=== PATIENT | female | born 1955 | race Caucasian/White ===

== ENCOUNTER 2018-08-22 09:06 | Inpatient (IN) | payer MEDICARE, MEDICAID ==
--- NOTE | 2018-08-22 09:23 | ED ---
Psychiatric Complaint - HPI Summary HPI Summary: The patient is a 63 y/o F presenting to [facility] with a chief complaint of visual hallucinations this morning. She states that she was at home when she saw people in her house who were making a bomb. She left her house and was rolling on the ground outside until she reached her neighbor's house, who brought her here. She states that she doesn't think she was having hallucinations, but she does have hx of visual and auditory hallucinations. She additionally c/o left shoulder pain that is chronic but worse more today than usual due to the rolling around, and there is a warm, erythematous region on the posterior right calf extending down to the ankle. She reports that she had a similar episode with the RLE about four weeks ago with extensive swelling. The pain is currently rated 7/10 in severity in her shoulder and leg. She denies SI. Hx of DM, HTN, HLD, BTK left amputation, cellulitis, IBS, encephalopathy, pancreatitis. Light every day smoker, no EtOH, no substance use. - History Of Current Complaint Time Seen by Provider: 08/22/18 09:07 Hx Obtained From: Patient ?: No Onset/Duration: Sudden Onset, Lasting Hours, Still Present Timing: Hours Severity Initially: Moderate Severity Currently: Moderate Character: Anxious Aggravating Factor(s): Other - visual hallucinations Alleviating Factor(s): Nothing Associated Signs And Symptoms: Positive: Hallucinating - visual Related History: Positive For: Prior Psychiatric Issues - previous visual and auditory hallucinations Has Suicidal: Denies: Thoughts - Allergies/Home Medications Allergies/Adverse Reactions: Allergies Allergy/AdvReac Type Severity Reaction Status Date / Time Sulfa (Sulfonamide Allergy Unknown Verified 08/22/18 09:09 Antibiotics) Reaction Details Home Medications: Home Medications Atorvastatin* [Lipitor*] 40 mg PO DAILY 08/22/18 [History Confirmed 08/22/18] Cyclobenzaprine TAB* [Flexeril 10 MG TAB*] 10 mg PO TID 08/22/18 [History Confirmed 08/22/18] Gabapentin 1 cap PO TID 08/22/18 [History Confirmed 08/22/18] Levothyroxine Sodium 1 tab PO DAILY 08/22/18 [History Confirmed 08/22/18] Morphine Sulfate 1 tab PO TID 08/22/18 [History Confirmed 08/22/18] Potassium Chlor TAB* [Potassium Chlor TAB 20 MEQ*] 1 tab PO DAILY 08/22/18 [ History Confirmed 08/22/18] Venlafaxine EXT RELEASE CAP* [Effexor Xr CAP*] 3 cap PO DAILY 08/22/18 [History Confirmed 08/22/18] amLODIPine TAB* [Norvasc 5 mg TAB*] 5 mg PO DAILY 08/22/18 [History Confirmed ] traZODone TAB* [Desyrel TAB*] 2 tab PO BEDTIME 08/22/18 [History Confirmed 08/22] PMH/Surg Hx/FS Hx/Imm Hx Endocrine/Hematology History: Reports: Hx Diabetes, Hx Thyroid Disease Cardiovascular History: Reports: Hx Coronary Artery Disease, Hx Hypercholesterolemia, Hx Hypertension, Hx Peripheral Vascular Disease Musculoskeletal History: Reports: Other Musculoskeletal History - left BTK amputation Psychiatric History: Reports: Other Psychiatric Issues/Disorders - visual and auditory hallucinations - Surgical History Surgery Procedure, Year, and Place: BTK amputation, left, 2014 Infectious Disease History: No - Family History Known Family History: Positive: Diabetes - Social History Alcohol Use: None Hx Substance Use: No Substance Use Type: Reports: None Hx Tobacco Use: Yes Smoking Status (MU): Light Every Day Tobacco Smoker Do You Chew or Dip Tobacco: No Have You Chewed or Dipped Tobacco in the LAST YEAR: No Have You Smoked in the Last Year: No Review of Systems Positive: Other - left shoulder pain Positive: Other - erythema and warmness on the right posterior calf extending to ankle Psychological: Other - POSITIVE: visual hallucinations; NEGATIVE: SI All Other Systems Reviewed And Are Negative: Yes Physical Exam - Summary Physical Exam Summary: VITAL SIGNS: Reviewed. GENERAL: Patient is a well-developed and nourished female who is lying comfortable in the stretcher. Patient is not in any acute respiratory distress. HEAD AND FACE: No signs of trauma. No ecchymosis, hematomas or skull depressions. No sinus tenderness. EYES: PERRLA, EOMI x 2, No injected conjunctiva, no nystagmus. EARS: Hearing grossly intact. Ear canals and tympanic membranes are within normal limits. MOUTH: Oropharynx within normal limits. NECK: Supple, trachea is midline, no adenopathy, no JVD, no carotid bruit, no c- spine tenderness, neck with full ROM. CHEST: Symmetric, no tenderness at palpation LUNGS: Clear to auscultation bilaterally. No wheezing or crackles. CVS: Regular rate and rhythm, S1 and S2 present, no murmurs or gallops appreciated. ABDOMEN: Soft, non-tender. No signs of distention. No rebound no guarding, and no masses palpated. Bowel sounds are normal. EXTREMITIES: Below the knee amputation on the left, FROM in all major joints, no edema, no cyanosis or clubbing. NEURO: Alert and oriented x 3. No acute neurological deficits. Speech is normal and follows commands. SKIN: Erythema with some swelling and tenderness from below the knee to foot on the right. Skins is otherwise dry and warm. PSYCH: Having visual hallucinations. Denies any suicidal thoughts or plan. No homicidal thoughts or plan. No signs of psychosis or pressure speech. No tangential speech. Triage Information Reviewed: Yes Vital Signs Reviewed: Yes Diagnostics - Laboratory Result Diagrams: 08/23/18 06:00 08/22/18 09:39 Lab Statement: Any lab studies that have been ordered have been reviewed, and results considered in the medical decision making process. - Radiology CXR Radiology Interpretation Completed By: Radiologist Summary of Radiographic Findings: No evidence for active cardiopulmonary disease. ED physician has reviewed this radiology report. - Ultrasound BLE US Ultrasound Interpretation Completed By: Radiologist Summary of Ultrasound Findings: 1. Slightly limited exam, no evidence for deep venous thrombosis. 2. Winters's cyst. ED physician has reviewed this radiology report. Re-Evaluation - Re-Evaluation First Eval Re-Evaluation Time: 11:30 Comment: I disucssed admission with the patient. Course/Dx - Course Assessment/Plan: The patient is a 63 y/o F presenting to [facility] with a chief complaint of visual hallucinations this morning. She states that she was at home when she saw people in her house who were making a bomb. She left her house and was rolling on the ground outside until she reached her neighbor's house, who brought her here. She states that she doesn't think she was having hallucinations, but she does have hx of visual and auditory hallucinations. She additionally c/o left shoulder pain that is chronic but worse more today than usual due to the rolling around, and there is a warm, erythematous region on the posterior right calf extending down to the ankle. She reports that she had a similar episode with the RLE about four weeks ago with extensive swelling. The pain is currently rated 7/10 in severity in her shoulder and leg. She denies SI. Hx of DM, HTN, HLD, BTK left amputation, cellulitis, IBS, encephalopathy, pancreatitis. Light every day smoker, no EtOH, no substance use. 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 In the ED course. Place the patient in a gambling monitor, IV access was obtained. Eyes tended to IV fluids and Rocephin for the right lower extremity cellulitis. Chest x-ray impression: No evidence for active cardiopulmonary disease. Right lower extremity ultrasound impression: Slightly limited exam. No evidence for DVT. Positive for Bakers cyst. I discussed my physical exam, findings and test results with Dr. Newby from the hospitalist services, and she agrees to admit patient to his services. Patient is hemodynamically stable alert and oriented x 3. - Differential Dx/Clinical Impression Provider Diagnosis: Cellulitis, Visual hallucination - Physician Notifications Discussed Care Of Patient With: Silke Newby - hospitalist Time Discussed With Above Provider: 11:15 Instructed by Provider To: Other - I discussed the patient's case wtih Dr. Newby , and she accepts the patient for admission. Discharge - Sign-Out/Discharge Documenting (check all that apply): Patient Departure - Patient is accepted for admission by Dr. Newby. Patient Received Moderate/Deep Sedation with Procedure: No - Discharge Plan Condition: Stable Disposition: ADMITTED TO [facility] - Billing Disposition and Condition Condition: STABLE Disposition: Admitted to [facility] - Attestation Statements Document Initiated by Jean-Claude: Yes Documenting Scribe: Lorna Thompson Provider For Whom Jean-Claude is Documenting (Include Credential): Dr. Stephen Simons MD Scribe Attestation: Lorna Arvizu scribed for Dr. Stephen Simons MD on 08/23/18 at 0705. Scribe Documentation Reviewed: Yes Provider Attestation: The documentation as recorded by the Lorna smith accurately reflects the service I personally performed and the decisions made by me, Dr. Stephen Simons MD Status of Scribe Document: Viewed
[2018-08-22] MEDS ORDERED: cefTRIAXone(*) 1 GM in NS 0.9% 50 ML* 50 ML IVPB ONE (09:25)
[2018-08-22 10:01] LABS: ABS Basophils 0.1 10^3/ul (0-0.2); ABS Lymphocytes 0.6 10^3/ul (1.0-4.8); ABS Monocytes 0.3 10^3/ul (0-0.8); ABS Neutrophils 6.8 10^3/ul (1.5-7.7); Eosinophil % 0.5 %; Hematocrit 35 % (35-47); Hemoglobin 11.5 g/dL (12.0-16.0); Lymphocyte % 7.6 %; Mean Corpuscular HGB Conc 33 g/dL (31-36); Mean Corpuscular Hemoglobin 28 pg (27-31); Mean Corpuscular Volume 84 fL (80-97); Mean Platelet Volume 7.7 fL (7.4-10.4); Platelet Count 257 10^3/uL (150-450); Red Cell Distribution Width 14 % (10-15); White Blood Count 7.8 10^3/uL (3.5-10.8)
[2018-08-22 10:11] LABS: Activated Partial Thrombo Time 27.4 seconds (26.0-38.0); INR 1.09 (0.82-1.09)
[2018-08-22 10:19] LABS: Albumin 4.1 g/dL (3.2-5.2); Albumin/Globulin Ratio 1.2 (1-3); BUN/Creatinine Ratio 19.5 (8-20); C Reactive Protein 31.46 mg/L (<8.01); EGFR African American 79.3 (>60); EGFR Non-African American 65.6 (>60); Globulin 3.4 g/dL (2-4); Potassium 3.9 mmol/L (3.5-5.0); Total Bilirubin 0.5 mg/dL (0.2-1.0); Total Protein 7.5 g/dL (6.4-8.9)
[2018-08-22 10:40] LABS: Fibrinogen > 550.4 mg/dL (110.8-404.3)
--- NOTE | 2018-08-22 12:34 | PN ---
Progress Note - Progress Note Date of Service: 08/22/18 Note: Patient being placed on observation for cellulitis, mild. Patient has provided contact info as follows: Dean Saravia, friend [phone] (work) [phone] (home) Cj Monroy, son in [place], [place] [phone]
[2018-08-22] MEDS ORDERED: Dextrose 50% Syringe 50 ML* 25 GM/50 ML SYRINGE IV PUSH PRN (12:35)
[2018-08-22] MEDS ORDERED: ceFAZolin 1 GM ADVAN(*) 1 GM in NS 0.9% 50 ML* 50 ML IVPB SCH (13:00)
[2018-08-22 13:24] LABS: Erythrocyte Sed Rate 65 mm/Hr (0-29)
[2018-08-22] MEDS ORDERED: Morphine TAB (NF) 15 MG TAB PO SCH (14:00)
[2018-08-22] MEDS ORDERED: Gabapentin CAP(*) 300 MG PO SCH (14:00)
--- NOTE | 2018-08-22 14:27 | HP ---
CC: Dr. Martínez Peters * [facility] MEDICINE HISTORY AND PHYSICAL: DATE OF ADMISSION: 08/22/18 PRIMARY CARE PHYSICIAN: Dr. Martínez Peters. ATTENDING PHYSICIAN: Dr. Silke Newby * (dictation provided by Darcy Hermosillo NP ). CHIEF COMPLAINT: Hallucinations and question skin infection. HISTORY OF PRESENT ILLNESS: Ms. Jovel is a 63-year-old female with a past medical history of hypertension, diabetes, left below knee amputation, hypothyroidism, and question of intermittent right lower extremity cellulitis, who presents to the hospital today with concern for hallucinations with concern of warmth and redness to the right lower extremity. Per the report from EMS, they were called to the patient's home because the patient reported that there was someone in her home making a bomb. Per the report, the patient had crawled over to a neighbor's house to report this incident. The patient states that she has a history of hallucinations, but is not able elaborate further. When I asked her why she is here in the hospital today, she states that because she has redness and pain to her right lower extremity. However, this was not what was reported to EMS nor why she was brought here originally. The patient states that she first noted the redness and swelling to her right lower extremity 2 days ago. She denies having a fever. She states otherwise she was feeling well. She does note that she has not been taking her Bumex at home because it is too problematic to get up in the middle of the night to go to the bathroom. In terms of the hallucination, Ms. Jovel believes that she got confused after binge watching the show Designated Survivor on her phone through [employer]. I spoke with Ms. Jovel's friend, Dean Cid. Per his report, Ms. Jovel lives alone. He is a friend of her and lives several towns over. He notes that there has been some concern for her caring for herself at home and that the plan had been for her to move to live with her son, Cj, who lives in [place], [place]. Towards that end, the patient has sold her home to a friend; however, the patient was involved in a DWI, which Mr. Cid states is related to some excessive use of her morphine and therefore had to participate in a course through the [employer]. The patient apparently cannot leave the area until she completes the requirements for this offense. This is holding up her move to [place], [place]. Mr. Cid states that Ms. Jovel seems to be okay to be alone at home, but he has had concerns about her given her history and was certainly endorsing her move to live near her son. I have left a message for her son, but I have not heard back from him yet. In the emergency room, Ms. Jovel had labs showing a normal white blood cell count. She had a CRP at 31.46. On examination, she does have a warm and red right lower extremity. Her blood pressure is stable. She is afebrile. PAST MEDICAL HISTORY: 1. Question of tricuspid valve disorder, unknown type. 2. Hypertension. 3. Hyperlipidemia. 4. Hypothyroidism. 5. Non-insulin dependent type 2 diabetes. 6. Iron deficiency anemia. 7. Irritable bowel syndrome. 8. Overactive bladder. 9. Hepatitis C. 10. Left BKA. MEDICATIONS: The patient was unable to clearly confirm her medication list. Per the report from the primary care office, she is on the following medication regimen: 1. Amlodipine 5 mg. 2. Aspirin 81 mg. 3. Atorvastatin 40 mg. 4. Bumex 0.5 mg. 5. BuSpar 10 mg. 6. Ergocalciferol 2000 units. 7. Gabapentin 300 mg. 8. Levothyroxine 125 mcg. 9. Magnesium oxide 400 mg. 10. Metformin 500 mg. 11. Oxycodone 5 mg. 12. Polyethylene glycol powder. 13. Venlafaxine 75 mg. Unfortunately, this information from the primary care's office does not offer the directions for these medication. According to [facility], the patient is no longer on oxycodone, was actually on morphine IR 15 mg p.o. t.i.d. The patient states that she takes the Effexor 75 mg 2 tabs in the morning and 1 tab at night. She states she has not been taking the Bumex as noted above. Otherwise , the exact medications she is taking is somewhat unclear. FAMILY HISTORY: Reviewed and noncontributory. SOCIAL HISTORY: The patient is a current smoker. She denies alcohol or drug use. She lives alone. She states that her son Cj or her friend Dean would be the healthcare proxy. The son, Richmond' phone number is [phone] and Dean Cid, her friend, his phone number is [phone]. REVIEW OF SYSTEMS: A 14-point review of systems was completed with Ms. Jovel and all those not mentioned above were negative. PHYSICAL EXAMINATION GENERAL: Ms. Jovel is sitting in the bed. She is in no acute distress. She is alert and she is oriented x3. She does have some word finding difficulties at times, but is otherwise oriented x3. She moves all extremities equal. There is no facial asymmetry or focal weakness. Extraocular movements are intact. VITAL SIGNS: Temperature 98.9, pulse rate 80, respiratory rate 15, O2 saturation 99% on room air, blood pressure 139/80. LUNGS: Clear to auscultation bilaterally with no accessory muscle use and good aeration. HEART: S1, S2. No murmur, rub, or gallop and regular. ABDOMEN: Soft and nontender. Bowel sounds are positive x4. EXTREMITIES: No cyanosis. No edema. SKIN: The patient has mild erythema and warmth noted to the posterior aspect of her right lower extremity rising from the level of the ankle up to about care home towards the knee. This does wrap around small amount to the anterior portion of the ankle and has been outlined by the providers in the ED today and seems to have already improved since arrival there. DIAGNOSTIC STUDIES/LAB DATA: Sodium 140, potassium 3.9, chloride 103, serum bicarbonate 27, BUN 17, creatinine 0.87, glucose 149, lactic acid 1.0, troponin 0.00. CRP 31.46. WBC 7.8, hemoglobin 11.5, hematocrit 35. INR 1.09. Fibrinogen greater than 50.4. Chest x-ray shows no acute intrathoracic process. Venous Doppler is a incomplete study, but showed no evidence of DVT, but showed evidence of Winters cyst. ASSESSMENT AND PLAN: Ms. Jovel is a 63-year-old female with past medical history of noninsulin dependent diabetes, hypertension, hyperlipidemia, iron deficiency anemia, hepatitis C, and left below knee amputation, who presents to the hospital with concern for hallucinations, found to have right lower extremity cellulitis. Our plans are for observation in the hospital for the followin. Right lower extremity cellulitis: I think this may be an additional cause of her altered mental status; therefore, she deserves observation in the hospital overnight. Plan to treat with cefazolin 1 g q.8 hours. We will check labs in the a.m. She will be instructed to keep her lower extremity elevated at all times while seated. The area of redness has been demarcated and we will continue to observe that. She currently shows no evidence of sepsis. Blood cultures were sent. Lactic acid is normal. 2. Hallucinations: Per the patient's report and from the corroborative report from Mr. Cid, the patient's friend, the patient seems to have had a history of some intermittent hallucinations. I note that she is on morphine and this was confirmed via [facility]. Plan to reduce the dose from 15 t.i.d. to 10 t.i.d. Question whether or not she is appropriate candidate to continue at the time of discharge. She is also on gabapentin, which I will continue at a lower dose. She states she does not take Flexeril. I do question whether or not her infection may be contributing to her altered mental status as noted above. I asked social workers to follow up and see the patient as well to help determine safety for discharge. 3. Type 2 diabetes. Plan to monitor blood glucoses q.a.c. with lispro sliding scale. 4. Hypertension: The patient's blood pressure is now 160s to 150s. Plan to continue amlodipine. I am not continuing Bumex at this time. The patient has no lower extremity edema and an active infection. This can be resumed as needed. 5. Chronic pain. Again, plan to make adjustments to her morphine regimen as per above given her history of altered mental status and recent DWI. 6. Hypothyroidism. Continue levothyroxine. 7. Depression. Continue Effexor. 8. Code status is full code. TIME SPENT: Approximately 60 minutes was spent on the admission of this patient , more than half the time spent with the patient at the bedside reviewing the events leading up to this hospitalization, performing the physical examination, speaking with the patient's friends and family and reviewing my plan of care. DARCY HERMOSILLO NP [id number]/CPS #: [id number] [facility] CENTERPollo
[2018-08-22] MEDS: ceFAZolin 1 GM ADVAN(*) 1 GM in NS 0.9% 50 ML* 50 ML IVPB SCH ×2 (15:47→22:19)
[2018-08-22] MEDS: Heparin VIAL(*) 5000 UNITS/ML VIAL (FIVE THOUSAND) SUBCUT SCH ×2 (16:06→22:23)
[2018-08-22] MEDS: Gabapentin CAP(*) 300 MG PO SCH ×2 (16:06→22:12)
[2018-08-22] MEDS: Morphine ORAL.SOLN 10 mg* 2 MG/ML UDC 5 ml PO SCH ×2 (16:07→22:09)
[2018-08-22] MEDS: Insulin LISPRO* 1 UNITS UNIT SUBCUT SCH (17:52)
[2018-08-22] MEDS: traZODone TAB* 100 MG PO SCH (22:13)
[2018-08-22] MEDS: Venlafaxine EXT RELEASE CAP* 75 MG PO SCH (22:18)
[2018-08-23 03:32] LABS: Urine Appearance Clear; Urine Bilirubin Negative (Negative); Urine Blood Negative (Negative); Urine Color Yellow; Urine Glucose Negative (Negative); Urine Ketones Negative (Negative); Urine Nitrite Negative (Negative); Urine Protein Negative (Negative); Urine Specific Gravity 1.008 (1.010-1.030); Urine Urobilinogen Negative (Negative)
[2018-08-23] MEDS: ceFAZolin 1 GM ADVAN(*) 1 GM in NS 0.9% 50 ML* 50 ML IVPB SCH ×3 (06:25→21:14)
[2018-08-23] MEDS: Heparin VIAL(*) 5000 UNITS/ML VIAL (FIVE THOUSAND) SUBCUT SCH ×3 (06:27→20:53)
[2018-08-23 07:04] LABS: ABS Eosinophils 0.3 10^3/ul (0-0.6); ABS Lymphocytes 1.8 10^3/ul (1.0-4.8); ABS Monocytes 0.3 10^3/ul (0-0.8); Eosinophil % 6.4 %; Hematocrit 36 % (35-47); Hemoglobin 12.2 g/dL (12.0-16.0); Lymphocyte % 40.1 %; Mean Corpuscular HGB Conc 34 g/dL (31-36); Mean Corpuscular Hemoglobin 29 pg (27-31); Mean Corpuscular Volume 85 fL (80-97); Mean Platelet Volume 8.5 fL (7.4-10.4); Nucleated Red Blood Cells % 0.2; Platelet Count 172 10^3/uL (150-450); Red Blood Count 4.26 10^6 /uL (3.70-4.87); Red Cell Distribution Width 14 % (10-15); White Blood Count 4.4 10^3/uL (3.5-10.8)
[2018-08-23] MEDS: Insulin LISPRO* 1 UNITS UNIT SUBCUT SCH ×3 (08:32→17:03)
[2018-08-23] MEDS: Morphine ORAL.SOLN 10 mg* 2 MG/ML UDC 5 ml PO SCH ×3 (09:20→20:52)
[2018-08-23] MEDS: Venlafaxine EXT RELEASE CAP* 75 MG PO SCH ×2 (09:21→20:51)
[2018-08-23] MEDS: Gabapentin CAP(*) 300 MG PO SCH ×3 (09:21→20:53)
[2018-08-23] MEDS: Atorvastatin* 40 MG TAB PO SCH (09:21)
[2018-08-23] MEDS: Levothyroxine TAB* 75 MCG TAB PO SCH (09:21)
[2018-08-23] MEDS: amLODIPine TAB* 5 MG PO SCH (09:22)
--- NOTE | 2018-08-23 14:34 | PN ---
Subjective Date of Service: 08/23/18 Interval History: Ms. Jovel is feeling much better today. She offers no complaints, but is anxious as she is unsure what her living situation will be in the near future. Denies CP, SOB, N/V. She does remember the events from yesterday. She describes hallucinating about people being in her house and setting off a bomb. She reports it felt real at the time, but she now knows she was hallucinating. She reports this has happened to her in the past multiple times. No concerns from nursing. Family History: Unchanged from Admission Social History: Unchanged from Admission Past Medical History: Unchanged from Admission Objective Active Medications: Amlodipine Besylate (Norvasc Tab*) 5 mg PO DAILY RACHAEL Atorvastatin Calcium (Lipitor*) 40 mg PO DAILY RACHAEL Dextrose (D50w Syringe 50 Ml*) 12.5 gm IV PUSH .FOR FS < 60 - SS PRN FS < 60 Gabapentin (Neurontin Cap(*)) 300 mg PO TID RACHAEL Heparin Sodium (Porcine) (Heparin Vial(*)) 5,000 units SUBCUT Q8HR RACHAEL Cefazolin Sodium 1 gm/ Sodium (Chloride) 50 mls @ 200 mls/hr IVPB Q8HR RACHAEL Insulin Human Lispro (Humalog*) 0 units SUBCUT AC RACHAEL; Protocol Levothyroxine Sodium (Synthroid Tab*) 75 mcg PO DAILY RACHAEL Morphine Sulfate (Morphine Oral.Soln 10 Mg*) 10 mg PO TID RACHAEL Trazodone HCl (Desyrel Tab*) 200 mg PO BEDTIME RACHAEL Venlafaxine HCl (Effexor Xr Cap*) 150 mg PO DAILY RACHAEL Venlafaxine HCl (Effexor Xr Cap*) 75 mg PO 2100 RACHAEL Vital Signs - 8 hr 08/23/18 08/23/18 08/23/18 08:00 09:20 09:21 Respiratory 18 18 18 Rate O2 Sat by Pulse 99 Oximetry 08/23/18 13:21 Respiratory 18 Rate O2 Sat by Pulse Oximetry Oxygen Devices in Use Now: None Appearance: Middle-aged female laying in bed in NAD Eyes: No Scleral Icterus Ears/Nose/Mouth/Throat: Mucous Membranes Moist Neck: NL Appearance and Movements; NL JVP, Trachea Midline Respiratory: Symmetrical Chest Expansion and Respiratory Effort, Clear to Auscultation Cardiovascular: NL Sounds; No Murmurs; No JVD, RRR Abdominal: NL Sounds; No Tenderness; No Distention Extremities: No Edema Skin: - - Erythema receding from demarcation Neurological: Alert and Oriented x 3 Lines/Tubes/Other Access: Clean, Dry and Intact Peripheral IV Nutrition: Taking PO's Result Diagrams: 08/23/18 06:00 08/22/18 09:39 Assess/Plan/Problems-Billing Assessment: Ms. Jovel is a 63 yo F with PMH of HTN, HLD, hypothyroidism, and DM2; who presented to the ED with c/o hallucinations and was found to have AMS and RLE cellulitis. - Patient Problems (1) Cellulitis of right leg Code(s): L03.115 - CELLULITIS OF RIGHT LOWER LIMB Comment: - Improving from demarcated line - Continue cefazolin (2) Hallucinations Code(s): R44.3 - HALLUCINATIONS, UNSPECIFIED Comment: - Unclear etiology - Appreciate Psych consult - Morphine and gabapentin doses decreased on admission as these may be contributing (3) Hypertension Code(s): I10 - ESSENTIAL (PRIMARY) HYPERTENSION Comment: - Slightly hypertensive, SBP 140s - Continue amlodipine (4) Diabetes type 2, controlled Code(s): E11.9 - TYPE 2 DIABETES MELLITUS WITHOUT COMPLICATIONS Comment: - A1c 6.7% - Continue Lispro SS (5) Chronic pain Code(s): G89.29 - OTHER CHRONIC PAIN Comment: - Continue morphine and gabapentin at decreased doses; unclear if she should actually be d/c'd on these medications d/t hallucinations (6) Hypothyroidism Code(s): E03.9 - HYPOTHYROIDISM, UNSPECIFIED Comment: - TSH pending - Continue levothyroxine (7) Hyperlipidemia Code(s): E78.5 - HYPERLIPIDEMIA, UNSPECIFIED Comment: - Continue atorvastatin (8) DVT prophylaxis Code(s): Z29.9 - ENCOUNTER FOR PROPHYLACTIC MEASURES, UNSPECIFIED Comment: - Heparin SQ (9) Full code status Code(s): Z78.9 - OTHER SPECIFIED HEALTH STATUS Comment: Status and Disposition: Observation. Discharge plan unclear. Will need to speak with her son prior to d/ c to arrange a safe plan. Attending: Gm Downey
[2018-08-23 16:14] LABS: TSH (Thyroid Stimulating Horm) 2.85 mcIU/mL (0.34-5.60)
[2018-08-23] MEDS: traZODone TAB* 100 MG PO SCH (20:51)
[2018-08-24] MEDS: ceFAZolin 1 GM ADVAN(*) 1 GM in NS 0.9% 50 ML* 50 ML IVPB SCH (05:50)
[2018-08-24] MEDS: Heparin VIAL(*) 5000 UNITS/ML VIAL (FIVE THOUSAND) SUBCUT SCH ×3 (05:51→20:05)
[2018-08-24] MEDS: Insulin LISPRO* 1 UNITS UNIT SUBCUT SCH ×3 (08:12→18:13)
[2018-08-24] MEDS: Gabapentin CAP(*) 300 MG PO SCH ×3 (09:09→20:06)
[2018-08-24] MEDS: Levothyroxine TAB* 75 MCG TAB PO SCH (09:09)
[2018-08-24] MEDS: Venlafaxine EXT RELEASE CAP* 75 MG PO SCH ×2 (09:09→20:06)
[2018-08-24] MEDS: Atorvastatin* 40 MG TAB PO SCH (09:09)
[2018-08-24] MEDS: amLODIPine TAB* 5 MG PO SCH (09:09)
[2018-08-24] MEDS: Morphine ORAL.SOLN 10 mg* 2 MG/ML UDC 5 ml PO SCH ×3 (09:10→20:06)
--- NOTE | 2018-08-24 13:03 | PN ---
Subjective Date of Service: 08/24/18 Interval History: Patient notes redness is resolving in RLE. She is concerned that she has not heard from her son. She has sold her house and needs to move in the next several months. Family History: Unchanged from Admission Social History: Unchanged from Admission Past Medical History: Unchanged from Admission Objective Active Medications: Amlodipine Besylate (Norvasc Tab*) 5 mg PO DAILY [facility] Last Admin: 08/24/18 09:09 Dose: 5 mg Atorvastatin Calcium (Lipitor*) 40 mg PO DAILY [facility] Last Admin: 08/24/18 09:09 Dose: 40 mg Dextrose (D50w Syringe 50 Ml*) 12.5 gm IV PUSH .FOR FS < 60 - SS PRN PRN Reason: FS < 60 Gabapentin (Neurontin Cap(*)) 300 mg PO TID [facility] Last Admin: 08/24/18 09:09 Dose: 300 mg Heparin Sodium (Porcine) (Heparin Vial(*)) 5,000 units SUBCUT Q8HR [facility] Last Admin: 08/24/18 05:51 Dose: 5,000 units Cefazolin Sodium 1 gm/ Sodium (Chloride) 50 mls @ 200 mls/hr IVPB Q8HR [facility] Last Admin: 08/24/18 05:50 Dose: 200 mls/hr Insulin Human Lispro (Humalog*) 0 units SUBCUT AC [facility]; Protocol Last Admin: 08/24/18 12:21 Dose: Not Given Levothyroxine Sodium (Synthroid Tab*) 75 mcg PO DAILY [facility] Last Admin: 08/24/18 09:09 Dose: 75 mcg Morphine Sulfate (Morphine Oral.Soln 10 Mg*) 10 mg PO TID [facility] Last Admin: 08/24/18 09:10 Dose: 10 mg Trazodone HCl (Desyrel Tab*) 200 mg PO BEDTIME [facility] Last Admin: 08/23/18 20:51 Dose: 200 mg Venlafaxine HCl (Effexor Xr Cap*) 150 mg PO DAILY [facility] Last Admin: 08/24/18 09:09 Dose: 150 mg Venlafaxine HCl (Effexor Xr Cap*) 75 mg PO 2100 [facility] Last Admin: 08/23/18 20:51 Dose: 75 mg Vital Signs - 8 hr 08/24/18 08/24/18 08/24/18 07:45 09:09 09:10 Temperature 36.5 C Pulse Rate 61 Respiratory 16 18 18 Rate Blood Pressure 111/61 (mmHg) O2 Sat by Pulse 98 Oximetry Oxygen Devices in Use Now: None Appearance: alert, no distress Eyes: No Scleral Icterus Ears/Nose/Mouth/Throat: NL Teeth, Lips, Gums Neck: NL Appearance and Movements; NL JVP, Trachea Midline Respiratory: Symmetrical Chest Expansion and Respiratory Effort, Clear to Auscultation Cardiovascular: NL Sounds; No Murmurs; No JVD, RRR Lymphatic: No Cervical Adenopathy Extremities: No Edema, - - LT BK amp Skin: - - RLE very mild erythema, tenderness, no edema Lines/Tubes/Other Access: Clean, Dry and Intact Peripheral IV Nutrition: Taking PO's Result Diagrams: 08/23/18 06:00 08/22/18 09:39 Additional Lab and Data: Laboratory Tests 08/23/18 08/23/18 08/24/18 12:10 16:52 07:13 POC Glucose (mg/dL) 165 H 95 114 H 08/24/18 11:55 POC Glucose (mg/dL) 140 H Microbiology and Other Data: Microbiology 08/22/18 09:45 Blood Venous Aerobic Blood Culture - Preliminary 08/22/18 09:45 Blood Venous Anaerobic Blood Culture - Preliminary No Growth Day 2 No Growth Day 2 08/22/18 09:39 Blood Venous Aerobic Blood Culture - Preliminary 08/22/18 09:39 Blood Venous Anaerobic Blood Culture - Preliminary No Growth Day 2 No Growth Day 2 Assess/Plan/Problems-Billing Assessment: Ms. Jovel is a 63 yo F with PMH of HTN, HLD, hypothyroidism, and DM2; who presented to the ED with c/o hallucinations and was found to have AMS and RLE cellulitis. - Patient Problems (1) Delirium due to another medical condition Current Visit: Yes Status: Acute Priority: High Code(s): F05 - DELIRIUM DUE TO KNOWN PHYSIOLOGICAL CONDITION SNOMED Code(s): 1501013 Comment: -Sensorium has cleared, appears due to infection (2) Cellulitis of right leg Current Visit: Yes Status: Acute Priority: High Code(s): L03.115 - CELLULITIS OF RIGHT LOWER LIMB SNOMED Code(s): 623893601 Comment: - Improving from demarcated line - Switch cefazolin to oral equivalent (3) Diabetes type 2, controlled Current Visit: Yes Status: Acute Priority: Medium Code(s): E11.9 - TYPE 2 DIABETES MELLITUS WITHOUT COMPLICATIONS SNOMED Code(s): 44716585 Comment: - A1c 6.7% - Continue Lispro SS (4) DVT prophylaxis Current Visit: Yes Status: Acute Priority: Low Code(s): Z29.9 - ENCOUNTER FOR PROPHYLACTIC MEASURES, UNSPECIFIED SNOMED Code(s): 087203070 Comment: - Heparin SQ Status and Disposition: Inpatient. Will need to speak with her son prior to d/c to arrange a safe plan.
[2018-08-24] MEDS: ceFUROXime TAB(*) 250 MG PO SCH (20:05)
[2018-08-24] MEDS: traZODone TAB* 100 MG PO SCH (20:06)
[2018-08-25] MEDS: Heparin VIAL(*) 5000 UNITS/ML VIAL (FIVE THOUSAND) SUBCUT SCH ×3 (05:14→20:13)
[2018-08-25] MEDS: Insulin LISPRO* 1 UNITS UNIT SUBCUT SCH ×3 (07:52→17:20)
--- NOTE | 2018-08-25 07:58 | PN ---
Progress Note - Progress Note Date of Service: 08/24/18 Note: Spoke with son Cj at length at [phone]. He agreed that long-term plan is for mother to come live with or near him in [place]. However, he wants her to be in good health before she moves there. He has a job , , kids. He states that she has had similar episodes of hallucination, disruptive behavior, and that he is unsure he can manage this. Patient has indeed sold her house, but can live there for several more months. He states that he wants her to just leave her extra belongings there, and not pack them all. His is willing to help the patient, as she is a nurse, but patient has not been forthcoming with information about what types of doctors she needs in [place]. Son is not sure that patient has attended legally-required DUI classes in [place]. He states she is very cagey about this information. He suggested that care management and discharge planners talk to his Rita Monroy RN at [phone] tomorrow.
[2018-08-25] MEDS: Levothyroxine TAB* 75 MCG TAB PO SCH (08:35)
[2018-08-25] MEDS: Atorvastatin* 40 MG TAB PO SCH (08:35)
[2018-08-25] MEDS: ceFUROXime TAB(*) 250 MG PO SCH ×2 (08:35→19:49)
[2018-08-25] MEDS: Venlafaxine EXT RELEASE CAP* 75 MG PO SCH ×2 (08:35→19:48)
[2018-08-25] MEDS: amLODIPine TAB* 5 MG PO SCH (08:35)
[2018-08-25] MEDS: Gabapentin CAP(*) 300 MG PO SCH ×3 (08:35→19:47)
[2018-08-25] MEDS: Morphine ORAL.SOLN 10 mg* 2 MG/ML UDC 5 ml PO SCH ×3 (08:37→19:49)
--- NOTE | 2018-08-25 10:29 | PN ---
Subjective Date of Service: 08/25/18 Interval History: Patient has no new complaints. She has tenderness RLE. She has not spoken with her son Cj since admission. When I spoke with son yesterday, he expressed concern re episodes of delusions. He feels patient is overusing opiates. Spoke with Dr. Saini, pain management. He states patient already cut down on opiates, and is always consistent with counts, UDS. He was concerned re other medications such as benadryl causing confusion. He also had records of 2 other [facility], where delusional behavior attributed to UTI once, dehydration once. Family History: Unchanged from Admission Social History: Unchanged from Admission Past Medical History: Unchanged from Admission Objective Active Medications: Amlodipine Besylate (Norvasc Tab*) 5 mg PO DAILY [facility] Last Admin: 08/25/18 08:35 Dose: 5 mg Atorvastatin Calcium (Lipitor*) 40 mg PO DAILY [facility] Last Admin: 08/25/18 08:35 Dose: 40 mg Cefuroxime Axetil (Ceftin Tab(*)) 500 mg PO BID [facility] Last Admin: 08/25/18 08:35 Dose: 500 mg Dextrose (D50w Syringe 50 Ml*) 12.5 gm IV PUSH .FOR FS < 60 - SS PRN PRN Reason: FS < 60 Gabapentin (Neurontin Cap(*)) 300 mg PO TID [facility] Last Admin: 08/25/18 08:35 Dose: 300 mg Heparin Sodium (Porcine) (Heparin Vial(*)) 5,000 units SUBCUT Q8HR [facility] Last Admin: 08/25/18 05:14 Dose: 5,000 units Insulin Human Lispro (Humalog*) 0 units SUBCUT AC [facility]; Protocol Last Admin: 08/25/18 07:52 Dose: Not Given Levothyroxine Sodium (Synthroid Tab*) 75 mcg PO DAILY [facility] Last Admin: 08/25/18 08:35 Dose: 75 mcg Morphine Sulfate (Morphine Oral.Soln 10 Mg*) 10 mg PO TID [facility] Last Admin: 08/25/18 08:37 Dose: 10 mg Trazodone HCl (Desyrel Tab*) 200 mg PO BEDTIME [facility] Last Admin: 08/24/18 20:06 Dose: 200 mg Venlafaxine HCl (Effexor Xr Cap*) 150 mg PO DAILY [facility] Last Admin: 08/25/18 08:35 Dose: 150 mg Venlafaxine HCl (Effexor Xr Cap*) 75 mg PO 2100 [facility] Last Admin: 08/24/18 20:06 Dose: 75 mg Vital Signs - 8 hr 08/25/18 08/25/18 08/25/18 02:54 07:37 08:35 Temperature 36.4 C 36.4 C Pulse Rate 58 67 Respiratory 18 12 12 Rate Blood Pressure 96/52 104/64 (mmHg) O2 Sat by Pulse 98 98 Oximetry Oxygen Devices in Use Now: None Appearance: alert, no distress Eyes: No Scleral Icterus Ears/Nose/Mouth/Throat: Clear Oropharnyx Neck: No Thyroid Enlargement, Masses Respiratory: Symmetrical Chest Expansion and Respiratory Effort, Clear to Auscultation Cardiovascular: NL Sounds; No Murmurs; No JVD, RRR Abdominal: NL Sounds; No Tenderness; No Distention Extremities: - - LLE amputee, RLE w/ no erythema, but tenderness present Neurological: Alert and Oriented x 3 Lines/Tubes/Other Access: Clean, Dry and Intact Peripheral IV Nutrition: Taking PO's Result Diagrams: 08/23/18 06:00 08/22/18 09:39 Microbiology and Other Data: Microbiology 08/22/18 09:45 Blood Venous Aerobic Blood Culture - Preliminary 08/22/18 09:45 Blood Venous Anaerobic Blood Culture - Preliminary No Growth Day 3 No Growth Day 3 08/22/18 09:39 Blood Venous Aerobic Blood Culture - Preliminary 08/22/18 09:39 Blood Venous Anaerobic Blood Culture - Preliminary No Growth Day 3 No Growth Day 3 Assess/Plan/Problems-Billing Assessment: Ms. Jovel is a 63 yo F with PMH of HTN, HLD, hypothyroidism, and DM2; who presented to the ED with c/o hallucinations and was found to have AMS and RLE cellulitis. - Patient Problems (1) Delirium due to another medical condition Current Visit: Yes Status: Acute Priority: High Code(s): F05 - DELIRIUM DUE TO KNOWN PHYSIOLOGICAL CONDITION SNOMED Code(s): 3045454 Comment: -Sensorium has cleared, appears due to infection -Will check comprehensive UDS, as screening UDS not completed in ER -Will check RPR/syphillis -Social work should be talking with family re long-term plan (2) Cellulitis of right leg Current Visit: Yes Status: Acute Priority: High Code(s): L03.115 - CELLULITIS OF RIGHT LOWER LIMB SNOMED Code(s): 670860752 Comment: - Improving today - Tolerating oral ceftin (3) Diabetes type 2, controlled Current Visit: Yes Status: Acute Priority: Medium Code(s): E11.9 - TYPE 2 DIABETES MELLITUS WITHOUT COMPLICATIONS SNOMED Code(s): 78152316 Comment: - A1c 6.7% - Continue Lispro SS (4) DVT prophylaxis Current Visit: Yes Status: Acute Priority: Low Code(s): Z29.9 - ENCOUNTER FOR PROPHYLACTIC MEASURES, UNSPECIFIED SNOMED Code(s): 786336762 Comment: - Heparin SQ (5) Delusional disorder Current Visit: Yes Status: Acute Priority: Medium Code(s): F22 - DELUSIONAL DISORDERS SNOMED Code(s): 48343466 Comment: -Psychiatry to complete consultation today, called [facility]. Status and Disposition: Inpatient. Could be discharged today after psychiatry consult if VNS set up and family agrees.
[2018-08-25 10:43] LABS: Urine Benzodiazepine Screen None Detected (None Detect); Urine Opiates Screen Presumptive Positive (None Detect)
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
[2018-08-25] MEDS: traZODone TAB* 100 MG PO SCH (19:48)
[2018-08-25] MEDS ORDERED: QUEtiapine TAB* 25 MG PO SCH (21:00)
[2018-08-25] MEDS ORDERED: Atorvastatin* 40 MG TAB PO SCH (21:00)
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
[2018-08-26] MEDS: Heparin VIAL(*) 5000 UNITS/ML VIAL (FIVE THOUSAND) SUBCUT SCH (05:28)
[2018-08-26] MEDS: Insulin LISPRO* 1 UNITS UNIT SUBCUT SCH (07:42)
[2018-08-26] MEDS: Morphine ORAL.SOLN 10 mg* 2 MG/ML UDC 5 ml PO SCH (07:50)
[2018-08-26] MEDS: amLODIPine TAB* 5 MG PO SCH (07:51)
[2018-08-26] MEDS: ceFUROXime TAB(*) 250 MG PO SCH (07:51)
[2018-08-26] MEDS: Venlafaxine EXT RELEASE CAP* 75 MG PO SCH (07:51)
[2018-08-26] MEDS: Levothyroxine TAB* 75 MCG TAB PO SCH (07:51)
[2018-08-26] MEDS: Gabapentin CAP(*) 300 MG PO SCH (07:51)
--- NOTE | 2018-08-26 08:47 | DCNOTE ---
Subjective Date of Service: 08/26/18 Interval History: Pt seen on day of discharge Feels well Motivated to act on recommendations from Dr. Barker and Marshall including making lists and prioritizing Right LE with very minimal redness no warmth, much below the area of demarcation Remainder of exam wnl Plan: Unchanged from that listed in Dr. Laird discharge Ensured seroquel and ceftin ordered to appropriate pharmacy Note Oral Morphine 10mg is not available in 10mg tabs. Pt's daily morphine dose was titrated down from 15 TID to 10mg TID during hospital stay but there is no adequate replacement without adding other narcotics or decreasing further to 15BID. Family History: Unchanged from Admission Social History: Unchanged from Admission Past Medical History: Unchanged from Admission Objective Active Medications: Amlodipine Besylate (Norvasc Tab*) 5 mg PO DAILY [facility] Last Admin: 08/26/18 07:51 Dose: 5 mg Atorvastatin Calcium (Lipitor*) 40 mg PO 2100 [facility] Last Admin: 08/25/18 19:49 Dose: 40 mg Cefuroxime Axetil (Ceftin Tab(*)) 500 mg PO BID [facility] Last Admin: 08/26/18 07:51 Dose: 500 mg Dextrose (D50w Syringe 50 Ml*) 12.5 gm IV PUSH .FOR FS < 60 - SS PRN PRN Reason: FS < 60 Gabapentin (Neurontin Cap(*)) 300 mg PO TID [facility] Last Admin: 08/26/18 07:51 Dose: 300 mg Heparin Sodium (Porcine) (Heparin Vial(*)) 5,000 units SUBCUT Q8HR [facility] Last Admin: 08/26/18 05:28 Dose: 5,000 units Insulin Human Lispro (Humalog*) 0 units SUBCUT AC [facility]; Protocol Last Admin: 08/26/18 07:42 Dose: Not Given Levothyroxine Sodium (Synthroid Tab*) 75 mcg PO DAILY [facility] Last Admin: 08/26/18 07:51 Dose: 75 mcg Morphine Sulfate (Morphine Oral.Soln 10 Mg*) 10 mg PO TID [facility] Last Admin: 08/26/18 07:50 Dose: 10 mg Quetiapine Fumarate (Seroquel Tab*) 50 mg PO BEDTIME [facility] Last Admin: 08/25/18 19:48 Dose: 50 mg Trazodone HCl (Desyrel Tab*) 200 mg PO BEDTIME [facility] Last Admin: 08/25/18 19:48 Dose: 200 mg Venlafaxine HCl (Effexor Xr Cap*) 150 mg PO DAILY [facility] Last Admin: 08/26/18 07:51 Dose: 150 mg Venlafaxine HCl (Effexor Xr Cap*) 75 mg PO 2100 [facility] Last Admin: 08/25/18 19:48 Dose: 75 mg Vital Signs - 8 hr 08/26/18 08/26/18 08/26/18 03:40 07:50 07:51 Temperature 98.1 F Pulse Rate 65 Respiratory 16 16 16 Rate Blood Pressure 102/55 (mmHg) O2 Sat by Pulse 97 Oximetry Oxygen Devices in Use Now: None Result Diagrams: 08/23/18 06:00 08/22/18 09:39 Additional Lab and Data: Laboratory Tests 08/23/18 08/23/18 08/24/18 12:10 16:52 07:13 POC Glucose (mg/dL) 165 H 95 114 H 08/24/18 11:55 POC Glucose (mg/dL) 140 H Microbiology and Other Data: Microbiology 08/22/18 09:45 Blood Venous Aerobic Blood Culture - Preliminary 08/22/18 09:45 Blood Venous Anaerobic Blood Culture - Preliminary No Growth Day 3 No Growth Day 3 08/22/18 09:39 Blood Venous Aerobic Blood Culture - Preliminary 08/22/18 09:39 Blood Venous Anaerobic Blood Culture - Preliminary No Growth Day 3 No Growth Day 3 Assess/Plan/Problems-Billing Status and Disposition: Discharged
[2018-08-26 10:02] VITALS: BP 115/71
[2018-08-28 15:07] LABS: Adulterants Comment Normal; Creatinine, Urine 57.8 mg/dL; Fentanyl, Ur Not Detected ng/mL (Cutoff: 2); Hydrocodone, Ur Not Detected ng/mL (Cutoff: 25); Hydromorphone, Ur Present ng/mL (Cutoff: 25); Morphine, Ur Present ng/mL (Cutoff: 25); Norfentanyl, Ur Not Detected ng/mL (Cutoff: 2); Norhydrocodone, Ur Not Detected ng/mL (Cutoff: 25); Noroxycodone, Ur Not Detected ng/mL (Cutoff: 25); Oxycodone, Ur Not Detected ng/mL (Cutoff: 25); Tramadol, Ur Not Detected ng/mL (Cutoff: 25); Urine Barbiturates Negative; Urine Benzodiazepines Negative; Urine Cocaine Negative; Urine Phencyclidine Negative ng/mL (Cutoff: 25); Urine Tetrahydrocannabinol Negative ng/mL (Cutoff: 50)
== END 2018-08-26 10:20 | disposition home health service (06) | DRG 603 ==
LOC: ED 09:06 → MED 12:23 → OBSVTOIN 08-24 13:06
PROVIDERS: ADMIT Internal Medicine; ATTEND Internal Medicine
DX: L03.115 Cellulitis of right lower limb (principal); F05 Delirium due to known physiological condition; I25.10 Atherosclerotic heart disease of native coronary artery without angina pectoris; E78.00 Pure hypercholesterolemia, unspecified; E11.51 Type 2 diabetes mellitus with diabetic peripheral angiopathy without gangrene; F17.210 Nicotine dependence, cigarettes, uncomplicated; I10 Essential (primary) hypertension; E03.9 Hypothyroidism, unspecified; E78.5 Hyperlipidemia, unspecified; K58.9 Irritable bowel syndrome, unspecified; F32.9 Major depressive disorder, single episode, unspecified; G89.29 Other chronic pain; F22 Delusional disorders; D50.9 Iron deficiency anemia, unspecified; I07.9 Rheumatic tricuspid valve disease, unspecified; N32.81 Overactive bladder; Z89.512 Acquired absence of left leg below knee; Z88.2 Allergy status to sulfonamides; Z83.3 Family history of diabetes mellitus; Z86.19 Personal history of other infectious and parasitic diseases
CPT/HCPCS: 36415; 71045; 80053; 80307; 80364; 81003; 83036; 83605; 84443; 84484; 85025; 85384; 85610; 85652; 85730; 86140; 86780; 87040; 99285; A9270-GY; G0378; G0480; J0690; J0696; J1644